=== PATIENT | female | born 1955 | race Caucasian/White ===

== ENCOUNTER 2024-03-26 17:05 | Inpatient (IN) | payer MEDICARE, OTHER ==
[~2024-03-26] VITALS: Ht 170.2 cm; Wt 76.4 kg
[2024-03-26] MEDS: ONDANSETRON 4MG 2ML VIAL IV ONE (18:07)
[2024-03-26] MEDS: MORPHINE 4 MG/ML 1ML VIAL IV PRN (18:07)
[2024-03-26 18:35] LABS: BASO % 0.3 % (0.0-1.0); EOS # 0.1 10^3/uL (0.0-0.5); EOS % 1.2 % (0.0-3.0); HEMATOCRIT 37.3 % (36.0-47.0); HEMOGLOBIN 12.3 g/dl (12.0-15.5); LYMPH # 1.3 10^3/uL (1.5-5.0); LYMPH % 12.2 % (24.0-44.0); MEAN CORPUSCULAR HEMOGLOBIN 29.6 pg (27.0-33.0); MEAN CORPUSCULAR VOLUME 89.7 fl (80.0-96.0); MONO # 0.7 10^3/uL (0.0-0.8); MONO % 6.2 % (2.0-8.0); NEUTROPHILS # 8.7 10^3/uL (1.5-8.5); NEUTROPHILS % 79.6 % (36.0-66.0); PLATELET COUNT, AUTOMATED 235 10^3/uL (150-450); RED BLOOD COUNT 4.16 10^6/uL (4.00-5.40); WHITE BLOOD COUNT 10.9 10^3/uL (4.0-10.0)
[2024-03-26 18:47] LABS: INR 1.13; PROTHROMBIN TIME 14.2 SECONDS (12.5-14.5)
[2024-03-26 19:04] LABS: BLOOD UREA NITROGEN 16 MG/DL (9-23); CALCIUM LEVEL 8.4 MG/DL (8.3-10.6); CARBON DIOXIDE LEVEL 27 MMOL/L (20-31); CHLORIDE LEVEL 109 MMOL/L (98-107); CREATININE FOR GFR 0.72 MG/DL (0.55-1.30); GLOMERULAR FILTRATION RATE > 60.0 (>45); GLUCOSE, FASTING 186 MG/DL (74-106); POTASSIUM SERUM 3.8 MMOL/L (3.5-5.1); SODIUM LEVEL 141 MMOL/L (136-145)
[2024-03-26] MEDS: ACETAMINOPHEN *IV* 1,000 MG in IV 1 EA IV ONE (19:57)
[2024-03-26] MEDS: fentaNYL 100 MCG/2 ML INJECTION IV ONE (19:58)
[2024-03-26] MEDS: MORPHINE 4 MG/ML 1ML VIAL IV ONE (22:57)
[2024-03-26] MEDS ORDERED: TRAM50TA2 PO (23:15)
[2024-03-26] MEDS ORDERED: BRIL90TA PO (23:15)
[2024-03-26] MEDS ORDERED: SERT50TA29 PO (23:15)
[2024-03-26] MEDS ORDERED: ECOT81TA5 PO (23:15)
[2024-03-26] MEDS ORDERED: LISI10TA22 PO (23:15)
[2024-03-26] MEDS ORDERED: CARV3.12 PO (23:15)
[2024-03-26] MEDS ORDERED: JARD1TAB3 PO (23:15)
[2024-03-26] MEDS ORDERED: LANTINJ4 SC (23:15)
[2024-03-26] MEDS ORDERED: ALBU8.5H INH (23:15)
[2024-03-26] MEDS ORDERED: ROSU20TA61 PO (23:15)
[2024-03-26] MEDS ORDERED: HOME MED LIST COMPLETE! XX SCH (23:20)
[2024-03-26] MEDS ORDERED: GLUCOSE 4 GM CHEW PO PRN (23:25)
[2024-03-26] MEDS ORDERED: GLUCAGON INJ 1MG VIAL SC PRN (23:25)
[2024-03-26] MEDS ORDERED: MOM 30ML SUSPENSION UDC PO PRN (23:25)
[2024-03-27] VITALS (8 sets, daily range): BP systolic 102–157; BP diastolic 42–70; TEMP 97.3–98.1; O2SAT 95–99
[2024-03-27] MEDS: traMADol 50 MG TAB PO PRN (01:00)
[2024-03-27] MEDS: NS 1,000 ML IV SCH (01:58)
[2024-03-27] MEDS: MORPHINE 2 MG/ML 1ML VIAL IV ONE (01:58)
[2024-03-27] MEDS: HEPARIN SOD (PORCINE) 5000UNITS/ML 1ML VIAL/SYRINGE SC SCH (03:50)
[2024-03-27] MEDS: INSULIN LISPRO (NovoLOG) PER UNIT SC SCH ×2 (06:10→21:00)
[2024-03-27] MEDS: ACETAMINOPHEN TAB 650MG DOSE (2X325MG) PO PRN (06:17)
[2024-03-27 07:22] LABS: HEMATOCRIT 34.3 % (36.0-47.0); HEMOGLOBIN 11.5 g/dl (12.0-15.5); MEAN CORPUSCULAR HEMOGLOBIN 29.6 pg (27.0-33.0); MEAN CORPUSCULAR HGB CONC 33.5 g/dl (32.0-36.5); MEAN CORPUSCULAR VOLUME 88.2 fl (80.0-96.0); PLATELET COUNT, AUTOMATED 199 10^3/uL (150-450); RED BLOOD COUNT 3.89 10^6/uL (4.00-5.40); WHITE BLOOD COUNT 8.7 10^3/uL (4.0-10.0)
[2024-03-27 07:48] LABS: ALBUMIN 3.2 G/DL (3.2-5.2); ALKALINE PHOSPHATASE 79 U/L (46-116); ALT/SGPT 15 U/L (7.0-40); AST/SGOT 13 U/L (<34); BILIRUBIN,TOTAL 0.5 MG/DL (0.3-1.2); BLOOD UREA NITROGEN 16 MG/DL (9-23); CARBON DIOXIDE LEVEL 26 MMOL/L (20-31); CHLORIDE LEVEL 110 MMOL/L (98-107); CREATININE FOR GFR 0.67 MG/DL (0.55-1.30); GLOMERULAR FILTRATION RATE > 60.0 (>45); GLUCOSE, FASTING 183 MG/DL (74-106); POTASSIUM SERUM 3.8 MMOL/L (3.5-5.1); SODIUM LEVEL 141 MMOL/L (136-145)
[2024-03-27] MEDS: DOCUSATE SODIUM 100MG CAPSULE PO SCH (08:11)
[2024-03-27] MEDS: CARVedilol 3.125 MG TAB PO SCH (08:11)
[2024-03-27] MEDS: TICAGRELOR 90 MG TABLET (BRILINTA) PO SCH (08:11)
[2024-03-27] MEDS: ROSUVASTATIN 10 MG TAB (CRESTOR) PO SCH (08:13)
[2024-03-27] MEDS: ASPIRIN 81MG ENTERIC TABLET PO SCH (08:14)
[2024-03-27] MEDS: DEXTROSE 50% 50ML SYRINGE IV PRN (10:35)
[2024-03-27] MEDS: D5W/0.9% SODIUM CHLORIDE 1,000 ML IV SCH (10:45)
[2024-03-27] MEDS: MORPHINE 2 MG/ML 1ML VIAL IV PRN ×2 (12:21→14:44)
[2024-03-27] MEDS ORDERED: LIDOCAINE 2% 100MG/5ML SDV (FOR ANES.) As Ordered ONE (12:32)
[2024-03-27] MEDS ORDERED: propofoL 200 MG/20 ML VIAL As Ordered ONE (12:32)
[2024-03-27] MEDS ORDERED: MIDAZOLAM INJ 2MG/2ML VIAL As Ordered ONE (12:41)
[2024-03-27] MEDS ORDERED: fentaNYL 100 MCG/2 ML INJECTION As Ordered ONE (12:41)
[2024-03-27] MEDS ORDERED: SUGAMMADEX SODIUM 500 MG/5 ML VIAL (BRIDION) As Ordered ONE (13:02)
[2024-03-27] MEDS ORDERED: ROCURONIUM BROMIDE 50MG/5ML VIAL As Ordered ONE (13:02)
[2024-03-27] MEDS ORDERED: METOCLOPRAMIDE INJ 10MG/2ML VIAL As Ordered ONE (13:05)
[2024-03-27] MEDS ORDERED: KETOROLAC 60MG 2ML VIAL As Ordered ONE (13:05)
[2024-03-27] MEDS ORDERED: ONDANSETRON 4MG 2ML VIAL As Ordered ONE (13:05)
[2024-03-27] MEDS: ceFAZolin 2 GM/D5W 50 ML IV BAG As Ordered ONE (13:40)
[2024-03-27] MEDS ORDERED: ONDANSETRON 4MG 2ML VIAL IV PRN (13:45)
[2024-03-27] MEDS ORDERED: fentaNYL 100 MCG/2 ML INJECTION IV PRN (13:45)
[2024-03-27 14:11] LABS: HEMOGLOBIN A1c 7.3 % (4.0-6.0)
[2024-03-27] MEDS: oxyCODONE 5MG TAB PO PRN (14:43)
[2024-03-27] MEDS: SERTRALINE HCL 25 MG TABLET PO SCH (22:03)
[2024-03-27] MEDS: ceFAZolin SOD 2 GM in IV 1 EA IV SCH (22:13)
[2024-03-28] VITALS: BP 136/66; TEMP 98.1; O2SAT 94
[2024-03-28 03:40] VITALS: BP 123/69; TEMP 98.2; O2SAT 95
[2024-03-28 06:03] LABS: BASO % 0.4 % (0.0-1.0); EOS # 0.2 10^3/uL (0.0-0.5); EOS % 1.6 % (0.0-3.0); HEMATOCRIT 30.1 % (36.0-47.0); HEMOGLOBIN 9.8 g/dl (12.0-15.5); LYMPH % 10.8 % (24.0-44.0); MEAN CORPUSCULAR HEMOGLOBIN 29.1 pg (27.0-33.0); MEAN CORPUSCULAR HGB CONC 32.6 g/dl (32.0-36.5); MEAN CORPUSCULAR VOLUME 89.3 fl (80.0-96.0); MONO # 0.8 10^3/uL (0.0-0.8); MONO % 8.6 % (2.0-8.0); NEUTROPHILS # 7.4 10^3/uL (1.5-8.5); NEUTROPHILS % 78.3 % (36.0-66.0); PLATELET COUNT, AUTOMATED 180 10^3/uL (150-450); RED BLOOD COUNT 3.37 10^6/uL (4.00-5.40); WHITE BLOOD COUNT 9.4 10^3/uL (4.0-10.0)
[2024-03-28 06:39] LABS: BLOOD UREA NITROGEN 20 MG/DL (9-23); CALCIUM LEVEL 8.5 MG/DL (8.3-10.6); CARBON DIOXIDE LEVEL 23 MMOL/L (20-31); CHLORIDE LEVEL 108 MMOL/L (98-107); CREATININE FOR GFR 0.74 MG/DL (0.55-1.30); GLOMERULAR FILTRATION RATE > 60.0 (>45); GLUCOSE, FASTING 195 MG/DL (74-106); POTASSIUM SERUM 3.8 MMOL/L (3.5-5.1); SODIUM LEVEL 140 MMOL/L (136-145)
[2024-03-28 07:27] VITALS: BP 131/49; TEMP 97.9; O2SAT 94
[2024-03-28 11:26] VITALS: BP 114/57; TEMP 97.9; O2SAT 98
[2024-03-28] MEDS: LEVEMIR (INSULIN DETEMIR) 1 UNITS/0.01ML SC SCH (11:53)
[2024-03-28 20:05] VITALS: BP 144/71; TEMP 97.9; O2SAT 97
[2024-03-29] MEDS ORDERED: oxyCODONE 5MG TAB PO PRN (00:15)
[2024-03-29 04:13] VITALS: BP 144/71; TEMP 97.9; O2SAT 98
[2024-03-29 06:55] LABS: BASO % 0.3 % (0.0-1.0); EOS # 0.2 10^3/uL (0.0-0.5); EOS % 2.1 % (0.0-3.0); HEMOGLOBIN 9.3 g/dl (12.0-15.5); LYMPH # 0.9 10^3/uL (1.5-5.0); LYMPH % 9.8 % (24.0-44.0); MEAN CORPUSCULAR HEMOGLOBIN 29.2 pg (27.0-33.0); MEAN CORPUSCULAR HGB CONC 33.2 g/dl (32.0-36.5); MEAN CORPUSCULAR VOLUME 88.1 fl (80.0-96.0); MONO # 0.9 10^3/uL (0.0-0.8); NEUTROPHILS # 7.4 10^3/uL (1.5-8.5); NEUTROPHILS % 78.4 % (36.0-66.0); PLATELET COUNT, AUTOMATED 186 10^3/uL (150-450); RED BLOOD COUNT 3.18 10^6/uL (4.00-5.40); WHITE BLOOD COUNT 9.5 10^3/uL (4.0-10.0)
[2024-03-29 07:19] LABS: BLOOD UREA NITROGEN 25 MG/DL (9-23); CALCIUM LEVEL 8.6 MG/DL (8.3-10.6); CARBON DIOXIDE LEVEL 27 MMOL/L (20-31); CHLORIDE LEVEL 108 MMOL/L (98-107); CREATININE FOR GFR 0.57 MG/DL (0.55-1.30); GLOMERULAR FILTRATION RATE > 60.0 (>45); GLUCOSE, FASTING 140 MG/DL (74-106); POTASSIUM SERUM 3.4 MMOL/L (3.5-5.1); SODIUM LEVEL 141 MMOL/L (136-145)
[2024-03-29] MEDS ORDERED: PERCOCET 5MG/325MG TAB PO PRN (07:25)
[2024-03-29] MEDS: POTASSIUM CHLORIDE 10MEQ SR TABLET PO ONE (08:06)
[2024-03-29 08:07] VITALS: BP 135/71
[2024-03-29] MEDS: LEVEMIR (INSULIN DETEMIR) 1 UNITS/0.01ML SC SCH (08:07)
[2024-03-29] MEDS: PERCOCET 5MG/325MG TAB PO PRN (09:37)
[2024-03-29] MEDS ORDERED: OXYC1TAB23 PO (10:18)
[2024-03-29] MEDS ORDERED: LANTINJ4 SC (10:18)
[2024-03-29] MEDS ORDERED: MIRA3350 PO (10:21)
[2024-03-29 12:00] VITALS: BP 131/61; TEMP 97.9; O2SAT 97
== END 2024-03-29 17:13 | disposition home health service (06) | DRG 482 ==
LOC: M ED 17:05 → EDBD 17:05 → M ED INP 23:25 → M MSPAV 03-27 01:04
PROVIDERS: ADMIT Family Medicine; ATTEND Internal Medicine
PROC: 0QS636Z Reposition Right Upper Femur with Intramedullary Internal Fixation Device, Percutaneous Approach (ICD-10-PCS; principal; 2024-03-27 14:40)
DX: S72.144A Nondisplaced intertrochanteric fracture of right femur, initial encounter for closed fracture (principal); W01.0XXA Fall on same level from slipping, tripping and stumbling without subsequent striking against object, initial encounter; E11.9 Type 2 diabetes mellitus without complications; I10 Essential (primary) hypertension; I25.10 Atherosclerotic heart disease of native coronary artery without angina pectoris; Z95.5 Presence of coronary angioplasty implant and graft; Z87.891 Personal history of nicotine dependence; Z79.82 Long term (current) use of aspirin; Z79.4 Long term (current) use of insulin; Z79.899 Other long term (current) drug therapy; Z88.8 Allergy status to other drugs, medicaments and biological substances; I25.2 Old myocardial infarction; D64.9 Anemia, unspecified; F32.A Depression, unspecified; J45.909 Unspecified asthma, uncomplicated; Y92.9 Unspecified place or not applicable; Y93.9 Activity, unspecified